=== PATIENT | male | born 1985 | race Caucasian/White ===

== ENCOUNTER 2018-05-23 14:37 | Emergency (ER) | payer MEDICAID ==
[2018-05-23 15:36] LABS: ADD MAN DIFF? NO
[2018-05-23] MEDS: LORAZEPAM 2 MG INJ IV (15:36)
[2018-05-23] MEDS: SOD CHLORIDE 0.9% 1,000 ML IV (15:36)
[2018-05-23] MEDS: CHLORDIAZEPOXIDE 25 MG CAP PO (15:36)
[2018-05-23 15:37] LABS: WHITE BLOOD COUNT 12.2 10^3/ul (4.8-10.8)
[2018-05-23 15:37] LABS: BASOPHILS % 0.3 % (0.0-2.0); EOSINOPHILS % 0.1 % (0.0-7.0); HEMATOCRIT 45.2 % (42.0-52.0); HEMOGLOBIN 15.8 g/dl (14.0-18.0); LYMPHOCYTES # 1.9 10^3/ul (0.8-2.9); LYMPHOCYTES % 15.4 % (15.0-51.0); MEAN CORPUSCULAR HEMOGLOBIN 31.9 pg (29.0-33.0); MEAN CORPUSCULAR VOLUME 91.1 fl (82.0-101.0); MONOCYTE # 0.6 10^3/ul (0.3-0.9); MONOCYTES % 4.6 % (0.0-11.0); NEUTROPHIL # 9.7 10^3/ul (1.6-7.5); NEUTROPHILS % 79.3 % (39.0-77.0); PLATELET COUNT 276 10^3/UL (140-415); RED BLOOD COUNT 4.96 10^6/ul (4.70-6.10); RED CELL DISTRIBUTION WIDTH 11.8 % (11.5-14.5)
[2018-05-23] MEDS: THIAMINE 100 MG TAB PO (15:43)
[2018-05-23] MEDS: FOLIC ACID 1 MG TAB PO (15:43)
[2018-05-23 16:02] LABS: ALANINE AMINOTRANSFERASE 130 IU/L (13-69); ALBUMIN 5.1 g/dl (3.3-4.9); ALBUMIN/GLOBULIN RATIO 1.13; ALKALINE PHOSPHATASE 64 IU/L (42-121); ANION GAP 14 (5-13); ASPARTATE AMINO TRANSFERASE 129 IU/L (15-46); BILIRUBIN,INDIRECT 1.5 mg/dl (0-1.1); BILIRUBIN,TOTAL 1.5 mg/dl (0.2-1.3); BLOOD UREA NITROGEN 9 mg/dl (7-20); CALCIUM 10.2 mg/dl (8.4-10.2); CARBON DIOXIDE 28 mmol/L (21-31); CHLORIDE 97 mmol/L (97-110); CREATININE 0.52 mg/dl (0.61-1.24); Estimated GFR > 60 mL/min (>60); GLUCOSE 119 mg/dl (70-220); POTASSIUM 4.3 mmol/L (3.5-5.1); SODIUM 139 mmol/L (135-144); TOTAL PROTEIN 9.6 g/dl (6.1-8.1)
[2018-05-23] MEDS: DEXTROSE 5%-0.45% NACL 500 ML BAG IV (16:33)
== END 2018-05-23 17:00 | disposition home or self-care (01) ==
LOC: E/R 14:37
DX: F10.230 Alcohol dependence with withdrawal, uncomplicated (principal); R40.2142 Coma scale, eyes open, spontaneous, at arrival to emergency department; R40.2252 Coma scale, best verbal response, oriented, at arrival to emergency department; R40.2362 Coma scale, best motor response, obeys commands, at arrival to emergency department
CPT/HCPCS: 36415; 70450; 80053; 85025; 96361; 96374; 99285-25

== ENCOUNTER 2018-06-28 13:29 | Emergency (ER) | payer MEDICAID ==
[2018-06-28] MEDS ORDERED: LORAZEPAM 1 MG TAB PO (16:00)
[2018-06-28 16:23] LABS: ADD MAN DIFF? NO
[2018-06-28 16:25] LABS: WHITE BLOOD COUNT 9.9 10^3/ul (4.8-10.8)
[2018-06-28 16:25] LABS: BASOPHIL # 0.1 10^3/ul (0.0-0.1); BASOPHILS % 0.5 % (0.0-2.0); EOSINOPHILS # 0.1 10^3/ul (0.0-0.5); EOSINOPHILS % 0.6 % (0.0-7.0); HEMATOCRIT 43.1 % (42.0-52.0); HEMOGLOBIN 14.8 g/dl (14.0-18.0); LYMPHOCYTES # 1.9 10^3/ul (0.8-2.9); LYMPHOCYTES % 19.1 % (15.0-51.0); MEAN CORPUSCULAR HGB CONC 34.3 g/dl (32.0-37.0); MEAN CORPUSCULAR VOLUME 93.3 fl (82.0-101.0); MEAN PLATELET VOLUME 9.6 fl (7.4-10.4); MONOCYTE # 0.5 10^3/ul (0.3-0.9); MONOCYTES % 4.9 % (0.0-11.0); NEUTROPHIL # 7.4 10^3/ul (1.6-7.5); NEUTROPHILS % 74.6 % (39.0-77.0); PLATELET COUNT 221 10^3/UL (140-415); RED BLOOD COUNT 4.62 10^6/ul (4.70-6.10); RED CELL DISTRIBUTION WIDTH 12.2 % (11.5-14.5)
[2018-06-28 16:42] LABS: AMPHETAMINE/METHAMPHETAMINE Negative (NEGATIVE); BARBITURATES Negative (NEGATIVE); BENZODIAZEPINES Negative (NEGATIVE); CANNABINOIDS Negative (NEGATIVE); COCAINE Negative (NEGATIVE); OPIATES Negative (NEGATIVE)
[2018-06-28 16:43] LABS: ALANINE AMINOTRANSFERASE 167 IU/L (13-69); ALBUMIN 4.9 g/dl (3.3-4.9); ALBUMIN/GLOBULIN RATIO 1.25; ALKALINE PHOSPHATASE 50 IU/L (42-121); ANION GAP 14 (5-13); ASPARTATE AMINO TRANSFERASE 95 IU/L (15-46); BILIRUBIN,INDIRECT 0.9 mg/dl (0-1.1); BILIRUBIN,TOTAL 0.9 mg/dl (0.2-1.3); BLOOD UREA NITROGEN 11 mg/dl (7-20); CALCIUM 9.8 mg/dl (8.4-10.2); CARBON DIOXIDE 26 mmol/L (21-31); CHLORIDE 101 mmol/L (97-110); CREATININE 0.65 mg/dl (0.61-1.24); Estimated GFR > 60 mL/min (>60); GLUCOSE 107 mg/dl (70-220); POTASSIUM 4.1 mmol/L (3.5-5.1); SODIUM 141 mmol/L (135-144); TOTAL PROTEIN 8.8 g/dl (6.1-8.1)
[2018-06-28 17:42] LABS: ETHANOL < 10.0 mg/dl (0-0)
[2018-06-28] MEDS: KETOROLAC 30 MG INJ IM (18:10)
== END 2018-06-28 18:34 | disposition home or self-care (01) ==
LOC: FTE 13:29
DX: R51 Headache (principal); R42 Dizziness and giddiness; R25.1 Tremor, unspecified
CPT/HCPCS: 80053; 80307; 85025; 93005; 96372; 99284-25